=== PATIENT | female | born 1935 | race Caucasian/White ===

== ENCOUNTER 2017-01-30 13:51 | Observation (INO) | payer OTHER ==
[~2017-01-30] VITALS: Ht 160 cm; Wt 65.5 kg
[2017-01-30 14:57] LABS: HEMATOCRIT 46.8 % (36.0-46.0); MCH 33.7 PG (29.0-34.0); MCHC 35.3 G/DL (30.0-36.0); MCV 95.5 FL (83-99); MEAN PLAT.VOLUME 9.1 uM^3 (9.5-12.4); PLATELET COUNT 212 K/uL (156-360); RBC DIS.WIDTH-CV 12.3 % (11.8-14.6); RBC DIS.WIDTH-SD 43.7 % (39-53); WHITE BLOOD COUNT 15.3 K/uL (4.1-10.2)
[2017-01-30 15:05] LABS: CHLORIDE 104 mEq/L (99-109); POTASSIUM 3.8 mEq/L (3.7-5.4); SODIUM 138 mEq/L (136-147)
[2017-01-30 15:07] LABS: GLUCOSE 94 mg/dL (70-99)
[2017-01-30 15:09] LABS: ANION GAP 6 MEQ/L (2-14)
[2017-01-30 15:11] LABS: GFR ESTIMATE (CALCULATED) > 59 mL/min/
[2017-01-30 15:12] LABS: UREA NITROGEN (BUN) 28 mg/dL (9-23)
[2017-01-30 15:17] LABS: TROP-I INTERPRETATION NEGATIVE; TROPONIN-I < 0.01 ng/mL (0.0-0.30)
[2017-01-30 16:41] LABS: ADD MIUA? YES; BILIRUBIN NEGATIVE; BLOOD NEGATIVE; COLOR YELLOW ((YELLOW)); GLUCOSE (STRIP) NEGATIVE; KETONES 20; LEUKOCYTES SMALL; NITRITE NEGATIVE; PROTEIN (STRIP) NEGATIVE; UROBILINOGEN 0.2 MG/DL (0.2-1.0)
[2017-01-30 16:46] LABS: BACTERIA RARE /HPF; EPITHELIAL CELLS 1+ /HPF; HYALINE CASTS 0-5 /LPF; MUCUS TRACE /LPF; RED BLOOD CELLS 0-5 /HPF (0-5); UCUL ADDED? NO; WHITE BLOOD CELLS 15-20 /HPF (0-5)
[2017-01-30] MEDS ORDERED: HYDROCHLOROTHIA25 MG PO (17:04)
[2017-01-30] MEDS ORDERED: ARMOUR THYROID60 M1 PO (17:05)
[2017-01-30 21:37] LABS: TROP-I INTERPRETATION NEGATIVE; TROPONIN-I 0.01 ng/mL (0.0-0.30)
[2017-01-30 21:38] VITALS: BP 122/80
[2017-01-30 23:00] VITALS: BP 142/50
[2017-01-30 23:00] LABS: HDL CHOLESTEROL 66 MG/DL (Desirable>=50); LDL CHOLESTEROL 158 mg/dL (Desirable<100); NON-HDL CHOLESTEROL 182 mg/dL (Desirable<160); TOTAL CHOLESTEROL 248 mg/dL (Desirable<200); TRIGLYCERIDES 119 MG/DL (Normal: <150)
[2017-01-31 02:44] LABS: EOSINOPHIL (%) 1.5 % (0-5); EOSINOPHIL COUNT 0.2 K/uL (0-0.3); IMMATURE GRANULOCYTE (%) 0.4 % (0.0-0.7); INSTRUMENT ABS NEUTROPHIL CT 7.1 K/uL; LYMPHOCYTE COUNT 2.4 K/uL (1.0-2.8); MCH 33.5 PG (29.0-34.0); MCHC 35.3 G/DL (30.0-36.0); MCV 94.7 FL (83-99); MEAN PLAT.VOLUME 9.4 uM^3 (9.5-12.4); MONOCYTE (%) 7.9 % (3-12); MONOCYTE COUNT 0.8 K/uL (0-0.8); NEUTROPHIL COUNT 7.1 K/uL (1.8-6.4); PLATELET COUNT 198 K/uL (156-360); RBC DIS.WIDTH-CV 12.3 % (11.8-14.6); RBC DIS.WIDTH-SD 42.8 % (39-53); RED BLOOD COUNT 4.54 M/uL (3.80-5.20); WHITE BLOOD COUNT 10.6 K/uL (4.1-10.2)
[2017-01-31 02:55] LABS: CHLORIDE 107 mEq/L (99-109); POTASSIUM 3.8 mEq/L (3.7-5.4)
[2017-01-31 02:56] LABS: SODIUM 139 mEq/L (136-147)
[2017-01-31 02:58] LABS: GLUCOSE 100 mg/dL (70-99)
[2017-01-31 02:59] LABS: ANION GAP 6 MEQ/L (2-14)
[2017-01-31 03:00] LABS: TOTAL BILIRUBIN 0.9 mg/dL (0.0-1.0)
[2017-01-31 03:01] LABS: ALKALINE PHOSPHATASE 38 IU/L (3-129)
[2017-01-31 03:02] LABS: GFR ESTIMATE (CALCULATED) > 59 mL/min/
[2017-01-31 03:03] LABS: DIRECT BILIRUBIN 0.1 mg/dL (0.0-0.3); TROP-I INTERPRETATION NEGATIVE; TROPONIN-I < 0.01 ng/mL (0.0-0.30); UREA NITROGEN (BUN) 22 mg/dL (9-23)
[2017-01-31 03:48] VITALS: BP 119/61
[2017-01-31 08:00] VITALS: BP 124/64
[2017-01-31 08:12] LABS: Estimated Average Glucose 105 mg/dL (70-123); HEMOGLOBIN A1c (GLYCOHEMOGLOB) 5.3 % HGB (Below 5.7)
[2017-01-31 15:37] VITALS: BP 123/66
[2017-02-01] MEDS ORDERED: ELIQUIS5 MG PO (15:22)
== END 2017-01-31 16:28 | disposition home or self-care (01) ==
LOC: EME → EDBD 13:51 → EDOF 19:04 → 5WEST 19:04 → EDOF 19:04 → 5WEST 20:43
PROVIDERS: Emergency Medicine; Hospitalist
DX: R55 Syncope and collapse (principal); I48.2 Chronic atrial fibrillation; I10 Essential (primary) hypertension; E03.9 Hypothyroidism, unspecified; Z87.891 Personal history of nicotine dependence; N39.0 Urinary tract infection, site not specified; R05 Cough; Z86.718 Personal history of other venous thrombosis and embolism; R06.02 Shortness of breath; R42 Dizziness and giddiness
CPT/HCPCS: 70450; 70551; 71010; 80048; 80061; 80076; 81003; 83036; 84484; 85025; 85027; 93005; 93306; 93880; 95819; 99281; 99285; G0378; G8978 GP CI; G8979 GP CH; G8987 GO CI; G8988 GO CH; J0696; J2060; J7050